=== PATIENT | male | born 1985 | race Caucasian/White ===

== ENCOUNTER 2021-12-05 19:04 | Emergency (ER) | payer BC ==
[2021-12-05 20:08] LABS: HEMOGLOBIN 16.3 gm/dl (14.0-17.5); RED BLOOD COUNT 5.48 M/UL (4.20-5.50); WHITE BLOOD COUNT 4.1 K/UL (4.5-11.0)
[2021-12-05 20:42] LABS: BUN/CREATININE RATIO 10 (0-10)
[2021-12-05] MEDS ORDERED: NITROSTAT0.4 MG SL (22:32)
[2021-12-05] MEDS ORDERED: ASPIRIN CHEWABL81 MG PO (22:32)
== END 2021-12-05 23:23 | disposition home or self-care (01) ==
LOC: ER1 19:04
PROVIDERS: Family Medicine
DX: R07.89 Other chest pain (principal); I10 Essential (primary) hypertension
CPT/HCPCS: 71045; 80053; 82550; 82553; 83874; 84484; 85025; 85379; 93005; 99285